=== PATIENT | male | born 1935 | race Caucasian/White ===

== ENCOUNTER 2019-02-04 11:09 | Inpatient (IN) | payer MEDICARE, BC ==
[2019-02-04] MEDS: SODIUM CHLORIDE 0.9% 1000ML 1,000 ML IV SCH (12:00)
[2019-02-04 12:21] LABS: BASOPHILS % (AUTO) 1 % (0-3); EOSINOPHILS % (AUTO) 2 % (0-9); HEMATOCRIT 46 % (39-53); HEMOGLOBIN 15.4 gm/dl (13.5-17.7); LYMPHOCYTES % (AUTO) 12.5 % (10-50); MEAN CORPUSCULAR HEMOGLOBIN 28.3 pg (27.0-32.0); MEAN CORPUSCULAR HGB CONC 33.7 gm/dl (32.0-36.0); MEAN CORPUSCULAR VOLUME 84 fL (80-100); MONOCYTES % (AUTO) 8.6 % (0-12); NEUTROPHILS % (AUTO) 75.7 % (37-80)
[2019-02-04 12:35] LABS: ALBUMIN 3.2 gm/dl (3.4-5.0); BILIRUBIN,TOTAL 0.5 mg/dl (0.2-1.0); CALCIUM 8.7 mg/dl (8.5-10.1); CARBON DIOXIDE 22.9 mEq/L (21-32); TOTAL PROTEIN 7.1 gm/dl (6.4-8.2)
[2019-02-04] MEDS ORDERED: POTASSIUM CHLORIDE 2 MEQ/ML 40 MEQ, LIDOCAINE HCL 1% MDV 2 ML in SODIUM CHLORIDE 0.9% 5... IV ONE (12:56)
[2019-02-04] MEDS ORDERED: POTASSIUM CHLORIDE 2 MEQ/ML SOL IV ONE (13:01)
[2019-02-04] MEDS ORDERED: LIDOCAINE HCL 1% MPF 30 SOL ONE (13:02)
[2019-02-04] MEDS ORDERED: PIPERACILLIN/TAZOBACT 3.375 GM 3.375 GM in SODIUM CHLORIDE 0.9% 100 ML 100 ML IV ONE (14:20)
[2019-02-04] MEDS ORDERED: PIPERACILLIN/TAZOBACT 3.375 GM PDS IV ONE ×2 (14:27→21:57)
[2019-02-04] MEDS: PIPERACILLIN/TAZOBACT 3.375 GM 3.375 GM in SODIUM CHLORIDE 0.9% 100 ML 100 ML IV SCH ×2 (16:55→22:16)
[2019-02-04 17:21] LABS: APPEARANCE,URINE Clear; BILIRUBIN,URINE 1+ (NEGATIVE); COLOR,URINE Dark yellow; GLUCOSE, URINE (UA) TRACE (NEGATIVE); KETONES,URINE 2+ (NEGATIVE); LEUKOCYTE ESTERASE ,URINE NEGATIVE (NEGATIVE); NITRATE,URINE NEGATIVE (NEGATIVE); OCCULT BLOOD,URINE NEGATIVE (NEG-TRACE); UROBILINOGEN,URINE 0.2 (0.2-1.0 EU)
[2019-02-04 17:46] LABS: BACTERIA 1+ (< 1+); CRYSTALS NEGATIVE (0-3 AVE/HPF); EPITHELIAL CELLS NEGATIVE (SQUAMOUS); RBC,URINE NEGATIVE (0-3AV/HPF); WBC,URINE NEGATIVE (0-5AV/HPF)
[2019-02-04 17:47] LABS: ICTOTEST,URINE NEGATIVE (NEGATIVE)
[2019-02-04] MEDS ORDERED: LORAZEPAM 0.5 MG TAB PO PRN (17:55)
[2019-02-04] MEDS ORDERED: PANTOPRAZOLE SODIUM 40 MG/10 ML PDS IV ONE (19:00)
[2019-02-04] MEDS: PAROXETINE HYDROCHLORIDE 20 MG TAB PO SCH (20:51)
[2019-02-04] MEDS ORDERED: ACETAMINOPHEN 325 MG PO PRN (20:53)
[2019-02-04] MEDS ORDERED: ONDANSETRON HCL 4 MG/2 ML SOL IV PRN (20:54)
[2019-02-04] MEDS ORDERED: LORAZEPAM 0.5 MG TAB PO ONE (20:56)
[2019-02-04] MEDS: SODIUM CHLORIDE 0.9% FLUSH 10 ML SOL IV SCH (21:34)
[2019-02-04] MEDS ORDERED: SODIUM CHLORIDE 0.9% 100 ML 100 ML IV ONE (21:58)
[2019-02-05] MEDS: DEXTROSE/SALINE 0.45% 1,000 ML IV SCH ×2 (01:42→10:33)
[2019-02-05] MEDS: LORAZEPAM 0.5 MG TAB PO PRN ×3 (02:35→20:54)
[2019-02-05] MEDS: SODIUM CHLORIDE 0.9% 1000ML 1,000 ML IV SCH (02:46)
[2019-02-05] MEDS ORDERED: PIPERACILLIN/TAZOBACT 3.375 GM PDS IV ONE ×2 (03:57→10:36)
[2019-02-05] MEDS ORDERED: SODIUM CHLORIDE 0.9% 100 ML 100 ML IV ONE ×2 (03:58→10:37)
[2019-02-05] MEDS: PIPERACILLIN/TAZOBACT 3.375 GM 3.375 GM in SODIUM CHLORIDE 0.9% 100 ML 100 ML IV SCH ×2 (04:07→10:56)
[2019-02-05] MEDS: SODIUM CHLORIDE 0.9% FLUSH 10 ML SOL IV SCH ×4 (06:30→21:58)
[2019-02-05 07:51] LABS: HEMATOCRIT 46 % (39-53); HEMOGLOBIN 14.8 gm/dl (13.5-17.7); MEAN CORPUSCULAR HEMOGLOBIN 27.6 pg (27.0-32.0); MEAN CORPUSCULAR HGB CONC 32.5 gm/dl (32.0-36.0); MEAN CORPUSCULAR VOLUME 85 fL (80-100)
[2019-02-05 07:57] LABS: CALCIUM 8.4 mg/dl (8.5-10.1); CARBON DIOXIDE 23.7 mEq/L (21-32); CREATININE 1.41 mg/dl (0.80-1.30); CRP INFLAMMATORY 10.91 mg/dl (0.00-0.33)
[2019-02-05] MEDS: PANTOPRAZOLE SODIUM 40 MG/10 ML PDS IV SCH (08:10)
[2019-02-05 08:14] LABS: POTASSIUM 2.6 mMol/L (3.5-5.1)
[2019-02-05 08:44] LABS: NEUTROPHILS % (MANUAL) 54 % (37-80)
[2019-02-05 08:45] LABS: BAND NEUTROPHILS % (MANUAL) 33 %; BASOPHILS % (MANUAL) 0 % (0-3); EOSINOPHILS % (MANUAL) 0 % (0-9); LYMPHOCYTES % (MANUAL) 9 % (10-50); MONOCYTES % (MANUAL) 4 % (0-12); NORMAL RBCS PRESENT
[2019-02-05] MEDS ORDERED: PAROXETINE HYDROCHLORIDE 20 MG TAB PO SCH (09:00)
[2019-02-05] MEDS ORDERED: POTASSIUM CHLORIDE 2 MEQ/ML 40 MEQ, LIDOCAINE HCL 1% MDV 2 ML in SODIUM CHLORIDE 0.9% 5... IV ONE (11:36)
[2019-02-05] MEDS ORDERED: POTASSIUM CHLORIDE 2 MEQ/ML SOL IV ONE ×3 (12:34→21:34)
[2019-02-05] MEDS ORDERED: SODIUM CHLORIDE 0.9% 250 ML 250 ML IV ONE (12:57)
[2019-02-05] MEDS ORDERED: LEVOFLOXACIN 25 MG/ML SOL IV ONE (12:57)
[2019-02-05] MEDS: METRONIDAZOLE 500 MG (PREMIX) 500 MG/100 ML SOL IV SCH ×3 (13:02→23:40)
[2019-02-05 13:31] LABS: LACTIC ACID 2.1 mMol/L (0.0-2.0)
[2019-02-05 13:32] LABS: CRP INFLAMMATORY 13.06 mg/dl (0.00-0.33)
[2019-02-05] MEDS: LEVOFLOXACIN 25 MG/ML 750 MG in SODIUM CHLORIDE 0.9% 250 ML 150 ML IV SCH (14:23)
[2019-02-05 14:40] LABS: CALCIUM 8.6 mg/dl (8.5-10.1); CARBON DIOXIDE 20.8 mEq/L (21-32); CREATININE 1.19 mg/dl (0.80-1.30)
[2019-02-05 14:48] LABS: POTASSIUM 2.8 mMol/L (3.5-5.1)
[2019-02-05] MEDS ORDERED: VANCOMYCIN HCL 125 MG CAP PO ONE (14:51)
[2019-02-05] MEDS ORDERED: SODIUM CHLORIDE 0.9% 1000ML 1,000 ML IV ONE (14:55)
[2019-02-05 20:21] LABS: BASOPHILS % (AUTO) 0 % (0-3); EOSINOPHILS % (AUTO) 0 % (0-9); HEMATOCRIT 39 % (39-53); LYMPHOCYTES % (AUTO) 8.5 % (10-50); MEAN CORPUSCULAR HEMOGLOBIN 27.8 pg (27.0-32.0); MEAN CORPUSCULAR VOLUME 84 fL (80-100); MONOCYTES % (AUTO) 5.9 % (0-12); NEUTROPHILS % (AUTO) 84.7 % (37-80)
[2019-02-05 20:24] LABS: LACTIC ACID 1.1 mMol/L (0.0-2.0)
[2019-02-05 20:25] LABS: CALCIUM 7.7 mg/dl (8.5-10.1); CARBON DIOXIDE 22.1 mEq/L (21-32); CREATININE 0.91 mg/dl (0.80-1.30); CRP INFLAMMATORY 11.74 mg/dl (0.00-0.33)
[2019-02-05 20:40] LABS: POTASSIUM 2.8 mMol/L (3.5-5.1)
[2019-02-05] MEDS: PAROXETINE HYDROCHLORIDE 20 MG TAB PO SCH (20:54)
[2019-02-05] MEDS: VANCOMYCIN HCL 125 MG CAP PO SCH (20:54)
[2019-02-05] MEDS ORDERED: POTASSIUM CHLORIDE 2 MEQ/ML 60 MEQ, LIDOCAINE HCL 1% MDV 2 ML in SODIUM CHLORIDE 0.9% 1... IV ONE (21:17)
[2019-02-05] MEDS ORDERED: LIDOCAINE HCL 1% MPF 30 SOL ONE (21:35)
[2019-02-06] MEDS: DEXTROSE/SALINE 0.45% 1,000 ML IV SCH ×3 (00:50→23:31)
[2019-02-06 01:26] LABS: CALCIUM 7.6 mg/dl (8.5-10.1); CARBON DIOXIDE 23.3 mEq/L (21-32); CREATININE 0.83 mg/dl (0.80-1.30)
[2019-02-06 01:32] LABS: BASOPHILS % (AUTO) 1 % (0-3); EOSINOPHILS % (AUTO) 1 % (0-9); HEMATOCRIT 37 % (39-53); HEMOGLOBIN 12.4 gm/dl (13.5-17.7); LYMPHOCYTES % (AUTO) 11.6 % (10-50); MEAN CORPUSCULAR HEMOGLOBIN 28.1 pg (27.0-32.0); MEAN CORPUSCULAR HGB CONC 33.5 gm/dl (32.0-36.0); MEAN CORPUSCULAR VOLUME 84 fL (80-100); MONOCYTES % (AUTO) 6.1 % (0-12); NEUTROPHILS % (AUTO) 80.6 % (37-80)
[2019-02-06 01:44] LABS: POTASSIUM 2.9 mMol/L (3.5-5.1)
[2019-02-06] MEDS: METRONIDAZOLE 500 MG (PREMIX) 500 MG/100 ML SOL IV SCH ×4 (05:15→23:32)
[2019-02-06] MEDS: SODIUM CHLORIDE 0.9% FLUSH 10 ML SOL IV SCH ×4 (05:16→22:40)
[2019-02-06] MEDS: VANCOMYCIN HCL 125 MG CAP PO SCH ×4 (09:53→20:31)
[2019-02-06] MEDS: POTASSIUM CHLORIDE 10 MEQ TER PO SCH ×5 (09:53→23:03)
[2019-02-06] MEDS: PANTOPRAZOLE SODIUM 40 MG/10 ML PDS IV SCH (09:53)
[2019-02-06] MEDS ORDERED: LEVOFLOXACIN 25 MG/ML SOL IV ONE (11:35)
[2019-02-06] MEDS ORDERED: SODIUM CHLORIDE 0.9% 250 ML 250 ML IV ONE (11:35)
[2019-02-06] MEDS: LEVOFLOXACIN 25 MG/ML 750 MG in SODIUM CHLORIDE 0.9% 250 ML 150 ML IV SCH (12:03)
[2019-02-06] MEDS: LORAZEPAM 0.5 MG TAB PO PRN ×2 (15:46→20:19)
[2019-02-06] MEDS: PAROXETINE HYDROCHLORIDE 20 MG TAB PO SCH (20:19)
[2019-02-07] MEDS: LORAZEPAM 0.5 MG TAB PO PRN ×2 (04:52→13:18)
[2019-02-07] MEDS: METRONIDAZOLE 500 MG (PREMIX) 500 MG/100 ML SOL IV SCH (05:46)
[2019-02-07] MEDS: SODIUM CHLORIDE 0.9% FLUSH 10 ML SOL IV SCH ×2 (05:46→13:01)
[2019-02-07 07:21] LABS: BASOPHILS % (AUTO) 1 % (0-3); EOSINOPHILS % (AUTO) 4 % (0-9); HEMATOCRIT 40 % (39-53); HEMOGLOBIN 13.2 gm/dl (13.5-17.7); LYMPHOCYTES % (AUTO) 16.2 % (10-50); MEAN CORPUSCULAR HEMOGLOBIN 28.1 pg (27.0-32.0); MEAN CORPUSCULAR HGB CONC 33.3 gm/dl (32.0-36.0); MEAN CORPUSCULAR VOLUME 84 fL (80-100); MONOCYTES % (AUTO) 7.7 % (0-12); NEUTROPHILS % (AUTO) 71.3 % (37-80)
[2019-02-07 07:28] LABS: CALCIUM 8.2 mg/dl (8.5-10.1); CARBON DIOXIDE 20.8 mEq/L (21-32); CREATININE 0.72 mg/dl (0.80-1.30); CRP INFLAMMATORY 3.25 mg/dl (0.00-0.33); POTASSIUM 3.4 mMol/L (3.5-5.1)
[2019-02-07 07:54] VITALS: BP 110/68; PULSE 72; RESP 16; TEMP 96.5; O2SAT 94
[2019-02-07] MEDS: PANTOPRAZOLE SODIUM 40 MG/10 ML PDS IV SCH (08:13)
[2019-02-07] MEDS: VANCOMYCIN HCL 125 MG CAP PO SCH ×2 (08:13→12:59)
[2019-02-07] MEDS ORDERED: LEVOFLOXACIN 500 MG TAB PO SCH (09:00)
[2019-02-07] MEDS: POTASSIUM CHLORIDE 10 MEQ TER PO SCH ×3 (09:41→14:37)
[2019-02-07] MEDS: METRONIDAZOLE 250 MG TAB PO SCH ×2 (09:41→12:59)
[2019-02-07] MEDS: DEXTROSE/SALINE 0.45% 1,000 ML IV SCH (13:01)
== END 2019-02-07 14:45 | disposition home or self-care (01) | DRG 373 ==
LOC: ED 11:09 → ACUTE CARE 15:20 → UNDOADMIN 15:20 → ACUTE CARE 15:30
PROVIDERS: ADMIT Family Medicine; ATTEND Family Medicine
DX: K57.92 Diverticulitis of intestine, part unspecified, without perforation or abscess without bleeding (principal); R41.0 Disorientation, unspecified; A04.72 Enterocolitis due to Clostridium difficile, not specified as recurrent; E87.6 Hypokalemia; F41.9 Anxiety disorder, unspecified; R10.9 Unspecified abdominal pain
CPT/HCPCS: 36415; 74176; 74177; 80048; 80053; 81001; 83880; 84132; 84484; 85007; 85025; 85027; 87040; 93012; 96365; 96366; 99070; 99221; 99231; 99284; J1956; J2405; J2543; J3480; Q9967; A9270-GY; J2001; J3490